=== PATIENT | male | born 1965 | race Caucasian/White ===

== ENCOUNTER 2023-07-24 20:11 | Emergency (ER) | payer OTHER, SELFPAY ==
[2023-07-24 20:15] VITALS: BP 176/84; PULSE 82; RESP 18; TEMP 37.1; O2SAT 97; BMI 33.1
[2023-07-24] MEDS: FLUORESCEIN SODIUM 1 MG STRIP OP (20:25)
[2023-07-24] MEDS: TETRACAINE HCL 0.5% OP SOL 80 DROP/4 ML BOTTLE OP (20:25)
--- NOTE | 2023-07-24 20:44 | ED.EYEPROB1 ---
HPI - Eye Problem General Chief complaint: Eye Problems Stated complaint: Eye Injury Time Seen by Provider: 07/24/23 20:20 Source: patient Mode of arrival: walk-in Limitations: no limitations History of Present Illness HPI Narrative: 58-year-old male presents for chief complaint of eye pain. Patient states he was cutting wood earlier today and a small chip flew into his eye. He was not wearing any glasses or contacts. The injury occurred approximately 6 hours prior to arrival here. Patient states it feels similar to previous corneal abrasions he had in the past. He states he had watering and burning in his eye. No obvious foreign bodies noted on initial exam Related Data Previous Rx's Medication Instructions Recorded ketorolac 0.5 % eye drops (Acular) 1 drp ophthalmic (eye) Q6H PRN 07/24/23 pain #5 mL tobramycin 0.3 % eye drops 1 drp ophthalmic (eye) Q4H #5 mL 07/24/23 Allergies Allergy/AdvReac Type Severity Reaction Status Date / Time No Known Drug Allergies Allergy Verified 07/24/23 20:17 Exam Narrative Exam Narrative: Nurses note and vital signs reviewed and patient is not hypoxic. General: The patient appears well and in no apparent distress. Patient is resting comfortably on cart. Skin: Warm, dry, no pallor noted. There is no rash noted. Head: Normocephalic, atraumatic Eye:Right eyes watering, no foreign body, EOM intact, small corneal abrasion noted.left eye within Normal limits . Normal conjunctiva, no drainage, EOMI. PERRL Ears, Nose, Mouth, and Throat: oral mucosa is moist. Nares patent. Mouth without vesicles. Ear canals patent. Tm's without Erythema Cardiovascular: Regular Rate and Rhythm Musculoskeletal: The patient has no evidence of calf tenderness, no pitting edema, symmetrical pulses noted bilaterally Neurological: A&O x4, normal speech Psychiatric: Cooperative Constitutional Vital Signs, click to edit/add: Last Vital Signs Temp 98.8 F 07/24/23 20:15 Pulse 82 07/24/23 21:11 Resp 18 07/24/23 21:11 BP 148/82 H 07/24/23 21:11 Pulse Ox 95 07/24/23 21:11 O2 Del Method Room Air 07/24/23 21:11 Eye Common normals: PERRL and EOMs intact bilaterally General eye: normal appearance of both eyes Course Vital Signs Vital signs: Vital Signs Temperature 98.8 F 07/24/23 20:15 Pulse Rate 82 07/24/23 20:15 Respiratory Rate 18 07/24/23 20:15 Blood Pressure 176/84 H 07/24/23 20:15 Pulse Oximetry 97 07/24/23 20:15 Oxygen Delivery Method Room Air 07/24/23 20:15 Temperature 98.8 F 07/24/23 20:15 Pulse Rate 82 07/24/23 21:11 Respiratory Rate 18 07/24/23 21:11 Blood Pressure 148/82 H 07/24/23 21:11 Pulse Oximetry 95 07/24/23 21:11 Oxygen Delivery Method Room Air 07/24/23 21:11 MDM - Eye Problem MDM Narrative Medical decision making narrative: Presents here with chief complaint of accidental injury to the right eye. Right eye is With tetracaine and stained with fluorescein. Small uptake noted around 9 o'clock position. No acute foreign body noted. Patient is updated on tetanus here this evening. He will be discharged home with tobramycin and Acular. Patient did have relief after administration of tetracaine. Patient able to be discharged home. States he has a appointment with his eye doctor in the next couple of weeks. Patient told return or call to get in sooner if necessary Differential Diagnosis Differential diagnosis: Likely corneal abrasion and conjunctivitis Discharge Plan Discharge Stand Alone Forms: Portal Instructions Chief Complaint: Eye Problems Clinical Impression: Corneal abrasion Patient Disposition: Home, Self-Care Time of Disposition Decision: 20:43 Condition: Good Prescriptions / Home Meds: New ketorolac [Acular] 0.5 % drops 1 drp ophthalmic (eye) Q6H PRN (Reason: pain) Qty: 5 0RF tobramycin 0.3 % drops 1 drp ophthalmic (eye) Q4H Qty: 5 0RF Instructions: Corneal Abrasion (ED) Additional Instructions: follow up with your eye doctor as scheduled Referrals: ARASH FINNEY MD [Primary Care Provider] - 1 week Discharge Date/Time: 07/24/23 21:15
[2023-07-24 21:11] VITALS: BP 148/82; PULSE 82; RESP 18; O2SAT 95
[2023-07-24] MEDS: KETOROLAC TROMETHAMINE 0.5% OP SOL 100 DROP/5 ML BOTTLE OP (21:11)
[2023-07-24] MEDS: ADACEL DIPH,PERTUSS(ACELL),TET VAC/PF 0.5 ML ADULT SYRINGE IM (21:12)
[2023-07-24] MEDS: TOBRAMYCIN 0.3% OP SOL 100 DROP/5 ML BOTTLE OP (21:12)
== END 2023-07-24 21:15 | disposition home or self-care (01) ==
PROVIDERS: Emergency Provider Internal Medicine; Family Provider Family Medicine; PCP Internal Medicine
DX: S05.02XA Injury of conjunctiva and corneal abrasion without foreign body, left eye, initial encounter (principal); X58.XXXA Exposure to other specified factors, initial encounter; Z23 Encounter for immunization
CPT/HCPCS: 90471; 90715; 99284

== ENCOUNTER 2024-04-29 11:11 | Outpatient (OUT) | payer OTHER, SELFPAY ==
--- NOTE | 2024-04-29 11:20 | XR_ITS ---
The [address] [address] Patient Name: JOHN BROUSSARD MRN: [id number] date: 1965 Sex: M Assigned Patient Location: [facility] Current Patient Location: Accession/Order Number: [id number] Exam Date: 04/29/2024 11:25 Report Date: 04/30/2024 07:51 At the request of: ARASH FINNEY Procedure: XR hip RT min 2V PROCEDURE: XR hip RT min 2V HISTORY: Right Hip Pain ; right leg pain COMPARISON: None. FINDINGS: BONES:Narrowing of the superior hip joint space with bpet-ic-iook articulation and mild subchondral sclerosis. Large degenerative osteophyte along superior rim of the acetabulum. Small degenerative osteophyte along margin of femoral head. SOFT TISSUES:No visible soft tissue swelling. EFFUSION:None visible. OTHER: Negative. XR/XR hip RT min 2V IMPRESSION: 1. Marked degenerative joint disease of the right hip. Electronically authenticated by: SREE OSORIO Date: 04/30/2024 07:51
== END 2024-04-29 11:12 | disposition home or self-care (01) ==
PROVIDERS: Family Provider Family Medicine; PCP Internal Medicine; Visit Provider Internal Medicine
DX: M25.551 Pain in right hip (principal); M16.11 Unilateral primary osteoarthritis, right hip
CPT/HCPCS: 73502